=== PATIENT | female | born 2005 | race Two or more races ===

== ENCOUNTER 2023-12-19 11:26 | Observation (INO) | payer OTHER ==
[2023-12-19] MEDS ORDERED: PREN-96 PO (12:06)
== END 2023-12-19 12:50 | disposition home or self-care (01) ==
LOC: LDRP 11:26
PROVIDERS: ADMIT Obstetrics & Gynecology; ATTEND Obstetrics & Gynecology
DX: O26.892 Other specified pregnancy related conditions, second trimester (principal); R10.9 Unspecified abdominal pain; Z3A.28 28 weeks gestation of pregnancy
CPT/HCPCS: 59025; 81002; 94760; G0378

== ENCOUNTER 2024-02-14 10:31 | Observation (INO) | payer OTHER ==
[~2024-02-14 10:31] MED LIST: PREN-96 PO
--- NOTE | 2024-02-14 10:50 | DVHDS2 ---
Physician Discharge Progress N Final Diagnosis: JAN MOVEMENT RESOLVED Operations or Procedures: Operations or Procedures NST,SONO Condition on Discharge: Good Disposition: Home Discharge Instructions: Diet: Regular Activity: No Restrictions, As Tolerated Medications: NA Follow Up Care: Specialist: 2D Discharge Statement: "Patient was advised to return to the ER or call 911 if any headaches, dizziness, shortness of breath, chest pain, abdominal pain, bleeding, fevers, or worsening of medical condition. Patient was counseled about treatment plan, medications, possible side effects, patientverbalized understanding. All questions were answered to the best of my ability. This discharge took greater then 30 minutes in planning, reviewing documenta tion, counseling the patient, and discussing with other team members." GUILHERME FIELDS DO Feb 14, 2024 10:50
--- NOTE | 2024-02-14 11:30 | DVH ---
CLINICAL HISTORY: movement. COMPARISON: None TECHNIQUE: biophysical profile was performed. Transabdominal sonographic images of the fetus we re obtained. FINDINGS: The fetus is in cephalic position. heart rate measures 136 BPM. Amniotic fluid index measures 14.4 cm. The placenta is fundal in position. No evidence of placenta previa or abruption. BPP profile is an overall score of 8/8, with 2/2 points for breathing, with at least one episode of breathing over a 30 second duration during a 30 minute observation, 2/2 points for m ovements, with 3 or more discrete body or limb movements, 2/2 points for tone, with one or more episodes of extremity extension with return to flexion, or opening and closing of hand, and 2/ 2 points for amniotic fluid, with at least 1 pocket of amniotic fluid that measures 2 cm in 2 perpend icular planes. IMPRESSION: BPP score of 8/8.
== END 2024-02-14 11:57 | disposition home or self-care (01) ==
LOC: LDRP 10:31
PROVIDERS: ADMIT Obstetrics & Gynecology; ATTEND Obstetrics & Gynecology
DX: O36.8130 Decreased fetal movements, third trimester, not applicable or unspecified (principal); Z98.890 Other specified postprocedural states; Z79.899 Other long term (current) drug therapy; Z3A.36 36 weeks gestation of pregnancy
CPT/HCPCS: 59025; 76818; 81002; 94760; G0378

== ENCOUNTER 2024-03-08 16:43 | Inpatient (IN) | payer BC, OTHER ==
[~2024-03-08] VITALS: Ht 152.4 cm; Wt 63.0 kg
[2024-03-08 17:45] LABS: Fern Testing Negative
--- NOTE | 2024-03-08 19:48 | DVH ---
BIOPHYSICAL PROFILE HISTORY: LOF TECHNIQUE: Multiple transabdominal real-time grayscale sonographic images through the gravid uterus of the fetus with duplex Doppler color flow and M-mode spectral analysis FINDINGS: BIOPHYSICAL PROFILE: breathing score: 2 movement score: 2 tone score: 2 Quantitative MOE score: 2 (MOE: 12.5 Cm.) Total score: 8/8 The cervix not visualized Single live fetus in cephalic presentation. heart rate 147 beats per minute. Fundal Grade 3 placenta without previa or abruption Single live fetus at 39 weeks 3 days Biophysical profile score 8/8 corresponding to an ADAL of 03/12/2024 IMPRESSION: 1. Biophysical profile score: 8/8
[2024-03-08 21:04] LABS: Fern Testing Negative
--- NOTE | 2024-03-08 21:06 | DVHHP2 ---
OB CC & HPI Date Date of Admission: Mar 08, 2024 Patient Identification: : 1 Para: 0 EDC: Mar 12, 2024 EGA: 39.3 Chief Complaints: Reason for admission: rupture of membranes History of Present Complaints 18y G1Po complains of leaking clear fluid since yesterday. Denies vaginal bleeding. Mild labor pains. AmniSure test positive x 2. MOE 12 cm GBS neg. Good care, uncomplicated. Past Medical History Cardiac: No pertinent Hx Pulmonary: No pertinent Hx Central Nervous System: No pertinent Hx GI: No pertinent Hx Hemotology/Oncology: No pertinent Hx Hepatobiliary: No pertinent Hx Psychiatric: No pertinent Hx Musculoskeletal: No pertinent Hx Rheumotologic: No pertinent Hx Infectious Disease: No peritnent Hx ENT: No pertinent Hx Renal/: No pertinent Hx Endocrine: No pertinent Hx Dermatology: No pertinent Hx Past Surgical History: No pertinent Hx OB History OB History Care: Good Care Ultrasounds: Normal mid trimester US Obstetrical Complications: None Medical Complications: None Home Meds Reported Medications Vit W/ Ferrous Fumara ( One Daily) Daily Tab, 1 TAB PO DAILY, #90 TAB 3 Refills 12/19/23 Family & Social History Family/Social History RPR/VDRL: Negative GBS Status: Negative HBsAG: Negative Review of Systems Constitutional: No symptom reported Ears, Nose, & Throat: No symptom reported Eyes: No symptom reported Pulmonary/Respiratory: No symptom reported Cardiovascular: No symptom reported Gastrointestinal: No symptom reported Genitourinary: No symptom reported Musculoskeletal: No symptom reported Skin: No symptom reported Psychiatric: No symptom reported Endocrine: No symptom reported Hemotologic/Lymphatic: No symptom reported OB Admission Exam Physical Exam HEENT: NCAT Heart: Rhythm Normal Lungs: Clear Abdomen: Gravid Extremities: Normal Reflexes: Normal Pelvic Exam: RN exam 1/Thick/-3 VTX Heart Rate: 130's Accelerations: Accelerations Present Decelerations: No Decelerations Short Term Variability: Present Traffic Signal Technician Variability: Average (6-25) Contractions on Admission: 6-10 Minutes Apart Intensity: Mild OB Plan Plan Admitting Diagnosis: Term IUP 39+ wk, suspected PROM based on history and AmniSure + test x 2 Category 1 FHR GBS neg Induction Methd: Misoprostol protocol Other Plan: Admit Induction of labor for PROM w/ PO cytotec pain control discussed. CRISTIANA LARA DO Mar 08, 2024 21:06
[2024-03-08] MEDS ORDERED: LIDOCAINE 2%HCL (LOCAL ANESTH.) INJ 20ML MDV IJ PRN (23:00)
[2024-03-08] MEDS: LACTATED RINGER'S 1,000 ML IV SCH (23:00)
[2024-03-08] MEDS ORDERED: BUTORPHANOL TARTRATE 2 MG/1 ML VIAL IV PRN ×2 (23:00)
[2024-03-08 23:32] LABS: Urine Bacteria None Seen /hpf (None Seen)
[2024-03-08 23:49] LABS: Basophils # (auto) 0.1 10 ^3/uL (0-0.2); Basophils % (auto) 0.8 % (0.0-2.0); Eosinophils # (auto) 0.1 10 ^3/uL (0-0.8); Hematocrit 32.3 % (36.0-46.0); Hemoglobin 10.6 g/dL (12.2-16.2); Lymphocytes # (auto) 2.7 10 ^3/uL (0.4-5.4); Lymphocytes % (auto) 31.1 % (10.0-50.0); Mean Corpuscular Hemoglobin 27.8 pg (28.0-32.0); Mean Corpuscular Hgb Conc. 32.9 g/dL (32.0-36.0); Mean Corpuscular Volume 84.5 fL (80.0-100.0); Monocytes # (auto) 0.8 10 ^3/uL (0-1.3); Monocytes % (auto) 9.4 % (0.0-12.0); Neutrophils # (auto) 4.9 10 ^3/uL (1.6-8.6); Neutrophils % (auto) 57.7 % (37.0-80.0); Nucleated Red Blood Cells % 0.1 %; Platelet Count (auto) 358 10^3/uL (140-450); Red Blood Cells 3.82 10^6/uL (4.0-5.20); White Blood Cell 8.5 10^3/uL (4.4-10.8)
[2024-03-08 23:57] LABS: Urine Blood Negative /uL (Negative); Urine Clarity Turbid (Clear); Urine Color Yellow (Yellow); Urine Hyaline Cast FEW /lpf (0 - 2); Urine Mucus FEW (None Seen); Urine Protein, UAD TRACE (Negative); Urine Specific Gravity 1.034 (1.001-1.035); Urine Squamous Epithelial Cell FEW /hpf (<5); Urine Urobilinogen 2 mg/dL (Negative); Urine WBC 2 /hpf (0 - 5); Urine pH 6.5 (5.0-9.0)
[2024-03-09] LABS: Alanine Aminotransferase 25 U/L (7-40); Albumin 3.8 g/dL (3.2-4.8); Anion Gap 7 (5-15); Aspartate Aminotransferase 26 U/L (13-40); BUN/Creatinine Ratio 23.4 (10.0-20.0); Bilirubin, Total 0.3 mg/dL (0.2-1.0); Blood Urea Nitrogen 11 mg/dL (9-23); Calcium 9.7 mg/dL (8.7-10.4); Carbon Dioxide 22 mmol/L (20-31); Glucose 80 mg/dL (74-106); Potassium 3.9 mmol/L (3.5-5.1); Sodium 137 mmol/L (136-145)
[2024-03-09 00:01] LABS: Total Protein 6.5 g/dL (5.7-8.2)
[2024-03-09 00:05] LABS: INR 0.89 (0.9-1.15); Partial Thromboplastin Time 26.2 SEC (24.5-34.5); Prothrombin Time 9.5 sec (9.3-11.8)
[2024-03-09 00:14] LABS: Amphetamine Screen, Urine Neg (NEGATIVE); Barbiturate Scree,Urine Neg (NEGATIVE); Benzodiazephine Screen, Urine Neg (NEGATIVE); Cannabinoid Screen, Urine Neg (NEGATIVE); Cocaine Screen, Urine Neg (NEGATIVE); Opiate Scree,Urine Neg (NEGATIVE); Phencyclidine Screen, Urine Neg (NEGATIVE)
[2024-03-09 00:15] LABS: Alkaline Phosphatase 298 U/L (46-116); Chloride 108 mmol/L (98-107)
[2024-03-09] MEDS: miSOPROStol 50 MCG per PRE-CUT 1/2 TAB PO PRN (01:08)
--- NOTE | 2024-03-09 03:08 | DVHPN2 ---
OB Labor Progress Note Date and Time Seen Date Seen: Mar 09, 2024 Time Seen: 03:06 Subjective Patient reports: No new complaints, Feels better Objective Vital Signs Afeb VSS Monitoring Method Monitoring Method: External Heart Rate Heart Rate Baseline: 130 Heart Rate Variability: Moderate Presence of FHR Accelerations: Yes Presence of FHR Decelerations: No Contractions Contractions Frequency: Other (3 in 10 min) Contractions Intensity: Moderate Contractions Resting Tone: Relaxed Membranes Membranes: Intact Vaginal Exam Vaginal Exam Dilation: 2 Vaginal Exam Effacement: 0 Vaginal Exam Station: -3 Vaginal Exam Presentation: VTX Vaginal Exam Show: None Medications Medications - Pitocin: No Medication - Epidural: No Lab Results Lab Results Current Medications Medications (Trade) Dose Ordered Sig/Jos Start Time Stop Time Status Last Admin Dose Admin Lactated Ringer's 1,000 ml @ 125 mls/hr Q8H 03/08/24 23:00 03/08/24 23:00 125 MLS/HR Witch Liset (Tucks) 1 pad PRN PRN 03/08/24 23:00 Sodium Lauryl Sulfate (Phisoderm) 240 ml PRN PRN 03/08/24 23:00 Benzocaine (Dermoplast) 1 applic PRN PRN 03/08/24 23:00 Butorphanol Tartrate (Stadol Injection) 1 mg Q4HPRN PRN 03/08/24 23:00 Butorphanol Tartrate (Stadol Injection) 2 mg Q4HPRN PRN 03/08/24 23:00 Misoprostol (Cytotec) 50 mcg Q4HPRN PRN 03/08/24 23:00 03/09/24 01:08 50 MCG Lidocaine HCl (Xylocaine) 20 ml ONCE PRN 03/08/24 23:00 Oxytocin 500 ml @ 999 mls/hr Q31M ONCE 03/08/24 23:45 03/09/24 00:15 DC Oxytocin 500 ml @ 125 mls/hr Q4H ONCE 03/09/24 00:15 03/09/24 04:14 Laboratory Tests Test 03/08/24 23:16 03/08/24 22:30 03/08/24 20:20 Range/Units White Blood Count 8.5 4.4-10.8 10^3/uL Red Blood Count 3.82 L 4.0-5.20 10^6/uL Hemoglobin 10.6 L 12.2-16.2 g/dL Hematocrit 32.3 L 36.0-46.0 % Mean Corpuscular Volume 84.5 80.0-100.0 fL Mean Corpuscular Hemoglobin 27.8 L 28.0-32.0 pg Mean Corpuscular Hemoglobin Concent 32.9 32.0-36.0 g/dL Red Cell Distribution Width 14.0 11.8-14.3 % Platelet Count 358 140-450 10^3/uL Mean Platelet Volume 7.1 6.9-10.8 fL Neutrophils (%) (Auto) 57.7 37.0-80.0 % Lymphocytes (%) (Auto) 31.1 10.0-50.0 % Monocytes (%) (Auto) 9.4 0.0-12.0 % Eosinophils (%) (Auto) 1.0 0.0-7.0 % Basophils (%) (Auto) 0.8 0.0-2.0 % Neutrophils # (Auto) 4.9 1.6-8.6 10 ^3/uL Lymphocytes # (Auto) 2.7 0.4-5.4 10 ^3/uL Monocytes # (Auto) 0.8 0-1.3 10 ^3/uL Eosinophils # (Auto) 0.1 0-0.8 10 ^3/uL Basophils # (Auto) 0.1 0-0.2 10 ^3/uL Nucleated Red Blood Cells 0.1 % Prothrombin Time 9.5 9.3-11.8 sec Prothrombin Time INR 0.89 L 0.9-1.15 Activated Partial Thromboplast Time 26.2 24.5-34.5 SEC Sodium Level 137 136-145 mmol/L Potassium Level 3.9 3.5-5.1 mmol/L Chloride Level 108 H 98-107 mmol/L Carbon Dioxide Level 22 20-31 mmol/L Anion Gap 7 5-15 Blood Urea Nitrogen 11 9-23 mg/dL Creatinine 0.47 L 0.550-1.02 mg/dL Glomerular Filtration Rate Calc 140 >90 mL/min BUN/Creatinine Ratio 23.4 H 10.0-20.0 Serum Glucose 80 74-106 mg/dL Calcium Level 9.7 8.7-10.4 mg/dL Total Bilirubin 0.3 0.2-1.0 mg/dL Aspartate Amino Transferase (AST) 26 13-40 U/L Alanine Aminotransferase (ALT) 25 7-40 U/L Alkaline Phosphatase 298 H 46-116 U/L Total Protein 6.5 5.7-8.2 g/dL Albumin 3.8 3.2-4.8 g/dL Rapid Plasma Reagin Pending Treponema pallidum Ab (TP-PA) Pending Hepatitis C Antibody Negative Negative Urine Color Yellow Yellow Urine Clarity Turbid H Clear Urine pH 6.5 5.0-9.0 Urine Specific [place] 1.034 1.001-1.035 Urine Protein Trace H Negative Urine Ketones Trace Negative Urine Blood Negative Negative /uL Urine Nitrite Negative Negative Urine Bilirubin Negative Negative Urine Urobilinogen 2 H Negative mg/dL Urine Leukocyte Esterase Trace Negative /uL Urine RBC 3 0 - 4 /hpf Urine WBC 2 0 - 5 /hpf Urine Squamous Epithelial Cells Few <5 /hpf Urine Bacteria None seen None Seen /hpf Urine Hyaline Casts Few 0 - 2 /lpf Urine Mucus Few None Seen Urine Glucose Normal Normal mg/dL Urine Opiates Screen Neg NEGATIVE Urine Fentanyl Screen Neg NEGATIVE Urine Barbiturates Screen Neg NEGATIVE Urine Phencyclidine Screen Neg NEGATIVE Urine Amphetamines Screen Neg NEGATIVE Urine Benzodiazepines Screen Neg NEGATIVE Urine Cocaine Screen Neg NEGATIVE Urine Cannabinoids Screen Neg NEGATIVE Amniotic Fluid Ferning Test Negative Placental [id number] Positive Assessment Assessment Term IUP, SROM Cat 1 FHR GBS neg Plan Plan Cytotec induction Pain control Plan discussed with: Patient CRISTIANA LARA DO Mar 09, 2024 03:08
[2024-03-09] MEDS: NALOXONE HCL 0.4 MG/ML VIAL IV ONE (05:00)
[2024-03-09] MEDS: ePHEDrine SULFATE 50 MG/ML AMP IV ONE (05:00)
[2024-03-09] MEDS: DERMOPLAST 60ML BOTTLE TOP PRN (05:15)
[2024-03-09] MEDS: PHISODERM TOP SOLN 240ML BTL TOP PRN (05:16)
[2024-03-09] MEDS: WITCH HAZEL-GLYCERIN PAD TOP PRN (05:16)
[2024-03-09] MEDS: LIDOCAINE HCL 2 %PF INJ 10ML AMP IJ ONE (06:04)
[2024-03-09] MEDS: ROPIVACAINE HCL 200 ML ONE (06:06)
[2024-03-09] MEDS: fentaNYL CITRATE 100 MCG/2 ML VL IV ONE (06:07)
--- NOTE | 2024-03-09 10:50 | DVHPN2 ---
CNM Labor Progress Note Date and Time Seen Date Seen: Mar 09, 2024 Time Seen: 08:00 Subjective Patient reports: Feels better Subjective Comment Pt resting Objective Vital Signs VSS, see chart Monitoring Method Monitoring Method: External Heart Rate Heart Rate Baseline: 130 Heart Rate Variability: Moderate Presence of FHR Accelerations: Yes Presence of FHR Decelerations: No Changes in Trends of Patterns: No Are all 5 Components of the FH: Yes Contractions Contractions Frequency: Other (q 1-3 min) Duration of Contraction: 60 Contractions Intensity: Moderate Contractions Resting Tone: Relaxed Membranes Membranes: Ruptured (SROM, light mec) Vaginal Exam Vag Exam Deferred: Yes (last SVE: /-3) Medications Medications - Pitocin: No Medication - Epidural: Yes Medication - Other s/p Cytotec x2 dose Lab Results Lab Results Vital Signs Date Time Temp Pulse Resp B/P (MAP) Pulse Ox O2 Delivery O2 Flow Rate FiO2 03/09/24 15:55 Room Air 03/09/24 06:07 119/79 Current Medications Medications (Trade) Dose Ordered Sig/Jos Start Time Stop Time Status Last Admin Dose Admin Lactated Ringer's 1,000 ml @ 125 mls/hr Q8H 03/08/24 23:00 03/09/24 14:21 DC 03/09/24 11:08 125 MLS/HR Mena Hutcihns (Tucks) 1 pad PRN PRN 03/08/24 23:00 03/09/24 05:16 1 PAD Sodium Lauryl Sulfate (Phisoderm) 240 ml PRN PRN 03/08/24 23:00 03/09/24 05:16 240 ML Benzocaine (Dermoplast) 1 applic PRN PRN 03/08/24 23:00 03/09/24 05:15 1 APPLIC Misoprostol (Cytotec) 50 mcg Q4HPRN PRN 03/08/24 23:00 03/09/24 14:21 DC 03/09/24 06:03 50 MCG Oxytocin 500 ml @ 999 mls/hr Q31M ONCE 03/08/24 23:45 03/09/24 00:15 DC 03/09/24 13:53 999 MLS/HR Oxytocin 500 ml @ 125 mls/hr Q4H ONCE 03/09/24 00:15 03/09/24 04:14 DC 03/09/24 14:25 125 MLS/HR Naloxone HCl (Narcan) 0.2 mg PRN ONCE 03/09/24 05:00 03/09/24 05:08 DC Ephedrine Sulfate (ePHEDrine SULFATE) 50 mg PRN ONCE 03/09/24 05:00 03/09/24 05:08 DC Fentanyl Citrate 100 mcg ONCE ONCE 03/09/24 05:00 03/09/24 05:08 DC 03/09/24 06:07 100 MCG Lidocaine HCl (Xylocaine-Pf 2% Injection) 20 ml ONCE ONCE 03/09/24 05:00 03/09/24 05:08 DC 03/09/24 06:04 20 ML Ibuprofen (Motrin Tablet) 600 mg Q6HP PRN 03/09/24 14:15 Acetaminophen (Tylenol Tablet) 650 mg Q4HP PRN 03/09/24 14:15 Docusate Sodium (Colace Capsule) 200 mg HS 03/09/24 22:00 Laboratory Tests Test 03/08/24 23:16 03/08/24 22:30 03/08/24 20:20 Range/Units White Blood Count 8.5 4.4-10.8 10^3/uL Red Blood Count 3.82 L 4.0-5.20 10^6/uL Hemoglobin 10.6 L 12.2-16.2 g/dL Hematocrit 32.3 L 36.0-46.0 % Mean Corpuscular Volume 84.5 80.0-100.0 fL Mean Corpuscular Hemoglobin 27.8 L 28.0-32.0 pg Mean Corpuscular Hemoglobin Concent 32.9 32.0-36.0 g/dL Red Cell Distribution Width 14.0 11.8-14.3 % Platelet Count 358 140-450 10^3/uL Mean Platelet Volume 7.1 6.9-10.8 fL Neutrophils (%) (Auto) 57.7 37.0-80.0 % Lymphocytes (%) (Auto) 31.1 10.0-50.0 % Monocytes (%) (Auto) 9.4 0.0-12.0 % Eosinophils (%) (Auto) 1.0 0.0-7.0 % Basophils (%) (Auto) 0.8 0.0-2.0 % Neutrophils # (Auto) 4.9 1.6-8.6 10 ^3/uL Lymphocytes # (Auto) 2.7 0.4-5.4 10 ^3/uL Monocytes # (Auto) 0.8 0-1.3 10 ^3/uL Eosinophils # (Auto) 0.1 0-0.8 10 ^3/uL Basophils # (Auto) 0.1 0-0.2 10 ^3/uL Nucleated Red Blood Cells 0.1 % Prothrombin Time 9.5 9.3-11.8 sec Prothrombin Time INR 0.89 L 0.9-1.15 Activated Partial Thromboplast Time 26.2 24.5-34.5 SEC Sodium Level 137 136-145 mmol/L Potassium Level 3.9 3.5-5.1 mmol/L Chloride Level 108 H 98-107 mmol/L Carbon Dioxide Level 22 20-31 mmol/L Anion Gap 7 5-15 Blood Urea Nitrogen 11 9-23 mg/dL Creatinine 0.47 L 0.550-1.02 mg/dL Glomerular Filtration Rate Calc 140 >90 mL/min BUN/Creatinine Ratio 23.4 H 10.0-20.0 Serum Glucose 80 74-106 mg/dL Calcium Level 9.7 8.7-10.4 mg/dL Total Bilirubin 0.3 0.2-1.0 mg/dL Aspartate Amino Transferase (AST) 26 13-40 U/L Alanine Aminotransferase (ALT) 25 7-40 U/L Alkaline Phosphatase 298 H 46-116 U/L Total Protein 6.5 5.7-8.2 g/dL Albumin 3.8 3.2-4.8 g/dL Rapid Plasma Reagin Pending Treponema pallidum Ab (TP-PA) Pending Hepatitis C Antibody Negative Negative Urine Color Yellow Yellow Urine Clarity Turbid H Clear Urine pH 6.5 5.0-9.0 Urine Specific [place] 1.034 1.001-1.035 Urine Protein Trace H Negative Urine Ketones Trace Negative Urine Blood Negative Negative /uL Urine Nitrite Negative Negative Urine Bilirubin Negative Negative Urine Urobilinogen 2 H Negative mg/dL Urine Leukocyte Esterase Trace Negative /uL Urine RBC 3 0 - 4 /hpf Urine WBC 2 0 - 5 /hpf Urine Squamous Epithelial Cells Few <5 /hpf Urine Bacteria None seen None Seen /hpf Urine Hyaline Casts Few 0 - 2 /lpf Urine Mucus Few None Seen Urine Glucose Normal Normal mg/dL Urine Opiates Screen Neg NEGATIVE Urine Fentanyl Screen Neg NEGATIVE Urine Barbiturates Screen Neg NEGATIVE Urine Phencyclidine Screen Neg NEGATIVE Urine Amphetamines Screen Neg NEGATIVE Urine Benzodiazepines Screen Neg NEGATIVE Urine Cocaine Screen Neg NEGATIVE Urine Cannabinoids Screen Neg NEGATIVE Amniotic Fluid Ferning Test Negative Placental [id number] Positive Assessment Assessment 18 yo IUP@ 39.4 wks IOL for SROM Category I tracing GBS negative Plan Plan RN to reassess pt status at 1000 for possible IV pitocin Epidural in place Frequent position changes in bed Limit SVE unless necessary Intrauterine resuscitation PRN Anticipate Plan discussed with: Patient, Other (family) RUBEN HERRERA CNM Mar 09, 2024 10:49
[2024-03-09] MEDS: LACT. RINGERS/OXYTOCIN 20UNITS 500 ML IV ONE ×2 (13:53→14:25)
[2024-03-09 19:00] VITALS: BP 119/72; PULSE 81; TEMP 98.6; O2SAT 98
[2024-03-09] MEDS: IBUPROFEN 600 MG TAB PO PRN (19:04)
--- NOTE | 2024-03-09 19:06 | LDN2 ---
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 Supervised by Christianne Simons CNM during the entire time. Delivery Summary At 1333 this 18yo now delivered a viable Female by w/ APGARS 9/9. MARÍA presentation. placed skin to skin on pts chest. Cord clamped and cut after pulsation ceased. Cord blood sent. Intact 3-vessel cord, central cord insertion, oval shaped placenta delivered spontaneously, [place]. Pitocin IV bolus started. Placenta sent to pathology. Patient had epidural. Cervix/vagina i nspected (intact) and first degree perineal and left labial lacerations present which were repaired with 3-0 vicryl suture. Fundus 1 below U, firm, midline, and light lochia. QBL 500ml. VSS. Count correct x2. Patient to care and baby to couplet care, both stable. CHRISTIANNE SIMONS CNM Mar 09, 2024 19:06
[2024-03-09] MEDS: DOCUSATE SOD 100 MG CAP PO SCH (21:58)
[2024-03-09 23:00] VITALS: BP 106/59; PULSE 61; RESP 16; TEMP 98.1; O2SAT 97
[2024-03-09] MEDS: ACETAMINOPHEN 325 MG TAB PO PRN (23:29)
[2024-03-10 03:00] VITALS: BP 112/76; PULSE 81; RESP 18; TEMP 98; O2SAT 98
[2024-03-10 07:21] VITALS: BP 104/70; PULSE 75; RESP 16; TEMP 98; O2SAT 98
[2024-03-10 08:06] LABS: RPR Non Reactive (Non Reactive)
[2024-03-10 08:27] LABS: Basophils # (auto) 0 10 ^3/uL (0-0.2); Basophils % (auto) 0.3 % (0.0-2.0); Eosinophils # (auto) 0.2 10 ^3/uL (0-0.8); Eosinophils % (auto) 1.4 % (0.0-7.0); Hematocrit 30.9 % (36.0-46.0); Hemoglobin 10.1 g/dL (12.2-16.2); Lymphocytes # (auto) 3.3 10 ^3/uL (0.4-5.4); Lymphocytes % (auto) 23.7 % (10.0-50.0); Mean Corpuscular Hemoglobin 27.5 pg (28.0-32.0); Mean Corpuscular Hgb Conc. 32.5 g/dL (32.0-36.0); Mean Corpuscular Volume 84.6 fL (80.0-100.0); Monocytes # (auto) 1.1 10 ^3/uL (0-1.3); Monocytes % (auto) 7.8 % (0.0-12.0); Neutrophils # (auto) 9.3 10 ^3/uL (1.6-8.6); Neutrophils % (auto) 66.8 % (37.0-80.0); Platelet Count (auto) 337 10^3/uL (140-450); Red Blood Cells 3.65 10^6/uL (4.0-5.20); Red Cell Distribution Width 14.4 % (11.8-14.3); White Blood Cell 13.9 10^3/uL (4.4-10.8)
[2024-03-10] MEDS ORDERED: DOCU-265 PO (08:35)
[2024-03-10] MEDS ORDERED: IBU600T PO (08:35)
[2024-03-10] MEDS ORDERED: PREN-96 PO (08:35)
--- NOTE | 2024-03-10 08:36 | DVHPN2 ---
Progress Note Date Seen: Mar 10, 2024 Subjective S: Pt feels tired, denies dizziness when walking, no issues voiding, breast and bottle feeding. Pt c/o swollen labia's. vital signs Vital Sign Date Time Temp Pulse Resp B/P (MAP) Pulse Ox O2 Delivery O2 Flow Rate FiO2 03/10/24 07:21 98.0 75 16 104/70 (81) 98 98.0 03/10/24 07:00 Room Air Total Intake and Output 03/09/24 03/09/24 03/10/24 15:00 23:00 07:00 Output Total 950 ml 600 ml Balance -950 ml -600 ml medications Current Medications Medications Dose Ordered Sig/Jos Route Start Time Stop Time Status Last Admin Dose Admin Witch Liset 1 pad PRN PRN TOP 03/08/24 23:00 03/09/24 05:16 1 PAD Sodium Lauryl Sulfate 240 ml PRN PRN TOP 03/08/24 23:00 03/09/24 05:16 240 ML Benzocaine 1 applic PRN PRN TOP 03/08/24 23:00 03/09/24 05:15 1 APPLIC Butorphanol Tartrate 1 mg Q4HPRN PRN IV 03/08/24 23:00 Cancel Butorphanol Tartrate 2 mg Q4HPRN PRN IV 03/08/24 23:00 Cancel Lidocaine HCl 20 ml ONCE PRN IJ 03/08/24 23:00 Cancel Ibuprofen 600 mg Q6HP PRN PO 03/09/24 14:15 03/10/24 03:31 600 MG Acetaminophen 650 mg Q4HP PRN PO 03/09/24 14:15 03/10/24 05:33 650 MG Docusate Sodium 200 mg HS PO 03/09/24 22:00 03/09/24 21:58 200 MG laboratory and microbiology Laboratory Tests 03/08/24 23:16 Test 03/08/24 23:16 Range/Units Serum Glucose 80 74-106 mg/dL Objective O: VSS Chest: heart sounds normal and lung sounds clear bilaterally Abd: soft, non-tender, fundus at U/firm/midline, active bowel sounds, no rebound or guarding Perineum: 2+ edema at labia minora's (ice pack present), sutures intact, edges well approximated, no erythema noted Ext: Non-tender, No edema, 2+ BLE DTRs Lochia: minimal See lab results Problems(with codes): (1) Iron deficiency anemia of mother during (2) (normal spontaneous vaginal delivery) (3) Obstetric labial laceration, delivered, current hospitalization (4) First degree perineal laceration during delivery Assessment/Plan A: 18yo now PPD#1 s/p -RN to apply sand bag with ice pack to perineum for edema reduction -Continue with routine PP care Plan discussed with: Patient, Other (family) RUBEN HERRERA CNM Mar 10, 2024 08:36
[2024-03-10 11:00] VITALS: BP 105/62; PULSE 93; RESP 17; TEMP 98.7; O2SAT 95
[2024-03-10 15:00] VITALS: BP 112/59; PULSE 90; RESP 16; TEMP 98.9; O2SAT 96
[2024-03-10] MEDS ORDERED: FER325T PO (17:01)
[2024-03-10 18:57] VITALS: BP 109/74; PULSE 83; RESP 16; TEMP 97.5; O2SAT 96
[2024-03-10 23:00] VITALS: BP 128/85; PULSE 90; RESP 16; TEMP 98.5; O2SAT 100
--- NOTE | 2024-03-11 00:35 | DVHPN2 ---
Progress Note Date Seen: Mar 11, 2024 Subjective S: bleeding is less, eating food without issues, denies lightheaded/dizziness, pain well controlled with oral medications, no concerns with urinating, passing flatus, no BM yet, ambulating well, and formula vital signs Vital Sign Date Time Temp Pulse Resp B/P (MAP) Pulse Ox O2 Delivery O2 Flow Rate FiO2 03/10/24 23:00 98.5 90 16 128/85 (99) 100 98.5 03/10/24 19:00 Room Air medications Current Medications Medications Dose Ordered Sig/Jos Route Start Time Stop Time Status Last Admin Dose Admin Mena Liset 1 pad PRN PRN TOP 03/08/24 23:00 03/09/24 05:16 1 PAD Sodium Lauryl Sulfate 240 ml PRN PRN TOP 03/08/24 23:00 03/09/24 05:16 240 ML Benzocaine 1 applic PRN PRN TOP 03/08/24 23:00 03/09/24 05:15 1 APPLIC Butorphanol Tartrate 1 mg Q4HPRN PRN IV 03/08/24 23:00 Cancel Butorphanol Tartrate 2 mg Q4HPRN PRN IV 03/08/24 23:00 Cancel Lidocaine HCl 20 ml ONCE PRN IJ 03/08/24 23:00 Cancel Ibuprofen 600 mg Q6HP PRN PO 03/09/24 14:15 03/10/24 18:34 600 MG Acetaminophen 650 mg Q4HP PRN PO 03/09/24 14:15 03/10/24 13:23 650 MG Docusate Sodium 200 mg HS PO 03/09/24 22:00 03/10/24 23:01 200 MG laboratory and microbiology Laboratory Tests 03/10/24 07:00 03/08/24 23:16 Test 03/08/24 23:16 Range/Units Serum Glucose 80 74-106 mg/dL Objective O: VSS Chest: heart sounds normal and lung sounds clear bilaterally Abd: soft, non-tender, fundus at U/firm/midline, active bowel sounds, no rebound or guarding Perineum: 1+ edema at labia minora's (ice pack present), sutures intact, edges well approximated, no erythema noted Ext: Non-tender, No edema, 2+ BLE DTRs Lochia: minimal See lab results Problems(with codes): (1) (normal spontaneous vaginal delivery) (2) Obstetric labial laceration, delivered, current hospitalization (3) First degree perineal laceration during delivery (4) Iron deficiency anemia of mother during Assessment/Plan A: 18yo now PPD#2 s/p Anemia Rh+ Rubella Immune and formula Pain control with PO medications Bowel regimen P: D/C home today Continue with sand bag on perineum for edema reduction while in the hospital Rx sent to pharmacy precautions and preeclampsia warning signs reviewed F/U with [facility] office in 2 weeks Plan discussed with: Patient, Other (partner) RUBEN HERRERA CNM Mar 11, 2024 00:35
--- NOTE | 2024-03-11 00:37 | DVHDS2 ---
Obstetrics Discharge Summary Obstetrics Discharge Summary Date of Admission: Mar 08, 2024 Date of Discharge: Mar 11, 2024 Reason For Admission: Induction of Labor (SROM) Procedures: NST, Ultrasound Intrapartum Procedures: Spontaneous vaginal deliv Procedures: Hct/date: (03/11/24), Hgb/date: (03/11/24) Operative Complicat: Laceration (1st degree perineal and left labial) Discharge Diagnosis: Term -Delivered Discharge Information: Activity (as tolerated, no heavy lifting and nothing in the vagina for 6 weeks), Diet (Routine), Medications (Rx sent), Instructions (Routine), Discharge to (Home), Accompanied by (partner), Discarge date (03/11/24) RUBEN HERRERA CNM Mar 11, 2024 00:37
[2024-03-11 03:00] VITALS: BP 107/63; PULSE 87; RESP 16; TEMP 98.9; O2SAT 97
[2024-03-11 06:45] VITALS: BP 122/80; PULSE 75; RESP 15; TEMP 98.3
== END 2024-03-11 08:54 | disposition home or self-care (01) | DRG 807 ==
LOC: LDRP 16:43 → OBSVTOIN 21:02 → LDRP 21:23
PROVIDERS: ADMIT Obstetrics & Gynecology; ATTEND Obstetrics & Gynecology
PROC: 10E0XZZ Delivery of Products of Conception, External Approach (ICD-10-PCS; principal; 2024-03-09)
PROC: 0HQ9XZZ Repair Perineum Skin, External Approach (ICD-10-PCS; 2024-03-09)
PROC: 3E0R3BZ Introduction of Anesthetic Agent into Spinal Canal, Percutaneous Approach (ICD-10-PCS; 2024-03-09)
PROC: 00HU33Z Insertion of Infusion Device into Spinal Canal, Percutaneous Approach (ICD-10-PCS; 2024-03-09)
DX: O70.0 First degree perineal laceration during delivery (principal); Z37.0 Single live birth; O90.81 Anemia of the puerperium; D64.9 Anemia, unspecified; Z3A.39 39 weeks gestation of pregnancy
CPT/HCPCS: 36415; 59025; 59409; 62282; 76818; 80053; 80307; 81001; 81002; 84112; 85025; 85610; 85730; 86592; 86780; 86803; 86850; 86900; 86901; 94760; 94762; 96360; 96361; 96365; 96366; G0378; J2590